=== PATIENT | male | born 1965 | race Caucasian/White ===

== ENCOUNTER 2017-05-02 08:02 | Emergency (ER) | payer BC ==
[~2017-05-02] VITALS: Ht 188 cm; Wt 90.9 kg
[2017-05-02 08:07] VITALS: BP 146/90; PULSE 77; TEMP 97.8
== END 2017-05-02 09:06 | disposition home or self-care (01) ==
LOC: COL.ER 08:02
DX: S61.011A Laceration without foreign body of right thumb without damage to nail, initial encounter (principal); F17.210 Nicotine dependence, cigarettes, uncomplicated; W26.0XXA Contact with knife, initial encounter